=== PATIENT | female | born 2005 | race Caucasian/White ===

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

== ENCOUNTER 2024-07-18 15:18 | Outpatient (REF) | payer MEDICAID, SELFPAY ==
--- NOTE | 2024-07-18 15:00 | PAPFT_PTH ---
PATIENT: SETH LOPEZ LOC: [facility] U#:[id number] AGE/SX: 19/F ROOM: RE07/18/[address]: Conchis Cervantes NP : 2005 BED: DIS: 07/18/2024 SPEC #: [id number] RECD: 07/18/24 17:59 STATUS: GENA RESusana #: [id number] KATHY: 07/18/24 15:[address]: Helen SILVERMAN,Conchis DEPT: [facility] Cytology RECD BY: Clarisse Frias ENTERED: 07/18/24 17:59 SP TYPE: PAPFT OT DR: Unknown,Unknown Tissues: 1 - CX/ENDOCX FOR PAP SMEARS Procedures: PAP THIN PREP/[facility] Screening Comments: [id number]
== END 2024-07-18 15:19 | disposition home or self-care (01) ==
LOC: LBN 15:18
PROVIDERS: Visit Provider Nurse Practitioner Women's Health
DX: Z12.4 Encounter for screening for malignant neoplasm of cervix (principal)
CPT/HCPCS: 88142